=== PATIENT | male | born 1985 | race Caucasian/White ===

== ENCOUNTER 2020-07-03 16:53 | Emergency (ER) | payer OTHER ==
[~2020-07-03] VITALS: Ht 170.2 cm; Wt 75.0 kg
[2020-07-03 16:57] VITALS: BP 169/93
[2020-07-03] MEDS ORDERED: GENOO OP (17:50)
[2020-07-04 06:43] LABS: HIV ANTIBODY 1&2 RAPID NON-REACTIVE (Neg)
== END 2020-07-03 18:23 | disposition home or self-care (01) ==
LOC: ER 16:54
DX: Z77.21 Contact with and (suspected) exposure to potentially hazardous body fluids (principal); Z79.899 Other long term (current) drug therapy
CPT/HCPCS: 36415; 86592; 86703; 86706; 86803; 87340; 99283